=== PATIENT | male | born 1965 | race Asian ===

== ENCOUNTER 2020-12-25 04:07 | Emergency (ER) | payer BC ==
[2020-12-25] MEDS ORDERED: Dexamethasone 10 MG/ML VIAL ONE (04:28)
[2020-12-25] MEDS ORDERED: Amlodipine 5 MG TAB ONE (04:28)
== END 2020-12-25 04:57 | disposition home or self-care (01) ==
LOC: ERS 04:07
DX: M54.41 Lumbago with sciatica, right side (principal); I10 Essential (primary) hypertension
CPT/HCPCS: 96372; 99283; J1100

== ENCOUNTER 2020-12-27 08:01 | Inpatient (IN) | payer BC ==
[2020-12-27] MEDS ORDERED: Morphine 4 MG/ML VIAL ONE (08:26)
[2020-12-27] MEDS ORDERED: Acetaminophen 650 MG Suppository PR PRN (14:58)
[2020-12-27] MEDS ORDERED: Ondansetron ODT 4 MG TAB PO PRN (14:58)
[2020-12-27] MEDS ORDERED: Acetaminophen 325 MG TAB PO PRN (14:58)
[2020-12-27] MEDS ORDERED: Ondansetron PF 4 MG/2 ML Vial IVP PRN (14:58)
[2020-12-27] MEDS ORDERED: Methocarbamol 500 MG TAB PO SCH (15:00)
[2020-12-27] MEDS ORDERED: Methocarbamol 500 MG TAB PO PRN (15:00)
[2020-12-27] MEDS: Morphine 4 MG/ML VIAL SLOW IVP PRN ×2 (16:37→22:30)
[2020-12-27 16:42] VITALS: BMI 28.5
[2020-12-27 21:28] LABS: SARS-CoV-2 PCR by NAA Not Detected (NotDetected)
[2020-12-28] MEDS ORDERED: Dexamethasone 4 mg/ml Vial SLOW IVP SCH ×2 (00:16→09:00)
[2020-12-28] MEDS ORDERED: Dexamethasone 10 MG in Sodium Chloride 0.9% 50 ML IVPB SCH (00:30)
[2020-12-28] MEDS ORDERED: Fentanyl 100 MCG/2 ML VIAL SLOW IVP SCH (00:30)
[2020-12-28] MEDS ORDERED: HYDROcodone/Acetaminophen 5/325 mg Tablet PO PRN (01:14)
[2020-12-28] MEDS ORDERED: Fentanyl 100 MCG/2 ML VIAL SLOW IVP PRN (01:15)
[2020-12-28] MEDS: HYDROcodone/Acetaminophen 5/325 mg Tablet PO PRN ×3 (04:06→22:59)
[2020-12-28 06:28] LABS: Anion Gap 13 mmol/L (10-20); BUN (Urea Nitrogen) 17 mg/dL (8.4-25.7); Calc. Creatinine Clearance 117 mL/min (70-130); Calcium 9.2 mg/dL (7.8-10.44); Carbon Dioxide 27 mmol/L (22-29); Chloride 107 mmol/L (98-107); Glucose 155 mg/dL (70-105); Sodium 143 mmol/L (136-145)
[2020-12-28 06:33] LABS: #Lymphocytes 1.3 thou/uL (1.20-3.40); #Monocytes 0.3 thou/uL (0.11-0.59); #Neutrophils 7.2 thou/uL (1.40-6.50); %Basophils 0.4 % (0.0-1.0); %Eosinophils 0.3 % (0.0-10.0); %Lymphocytes 15.1 % (21.0-51.0); %Neutrophils 81.2 % (42.0-75.0); Hemoglobin 14.7 g/dL (14.0-18.0); MDiff Complete? YES; Mean Corpuscular HGB CONC 33.3 g/dL (32.0-36.0); Mean Corpuscular Volume 66.2 fL (78.0-98.0); Mean Platelet Volume 12.3 fL (7.4-10.4); Microcytosis MODERATE=15-30 cells (100X) (0-5/hpf); Platelet Count 158 thou/uL (130-400); Platelet Morphology Comment Appears Adequate; Polychromasia SLIGHT = 2-3 cells (100X) (0-2/hpf); RBC Distribution Width 14.2 % (11.5-14.5); Red Blood Cell (RBC) Count 6.66 mill/uL (4.70-6.10); White Blood Cell (WBC) Count 8.9 thou/uL (4.8-10.8)
[2020-12-28] MEDS ORDERED: Gabapentin 100 MG CAP PO PRN (07:53)
[2020-12-28] MEDS ORDERED: Cyclobenzaprine 10 MG TAB PO PRN (07:53)
[2020-12-28] MEDS ORDERED: tiZANidine HCl 4 MG TAB PO PRN (07:54)
[2020-12-28] MEDS: Amlodipine 10 MG TAB PO SCH (07:54)
[2020-12-28] MEDS ORDERED: methylPREDNISolone Sod Succ/PF 125 MG/2 ML VIAL IVP SCH (09:45)
[2020-12-28] MEDS: Morphine 4 MG/ML VIAL SLOW IVP PRN (11:57)
[2020-12-28] MEDS: Gabapentin 300 MG CAP PO SCH ×2 (15:28→20:50)
[2020-12-28] MEDS: Lidocaine 5% Patch TD SCH (17:24)
[2020-12-28] MEDS ORDERED: Senokot S 8.6-50 MG TAB PO SCH (23:15)
[2020-12-29 06:37] LABS: PTT 26.9 sec (22.9-36.1); Prothrombin Time 12.8 sec (12.0-14.7)
[2020-12-29] MEDS: Transdermal Patch Removal TOP SCH (06:53)
[2020-12-29] MEDS: Senokot S 8.6-50 MG TAB PO SCH ×2 (08:15→20:43)
[2020-12-29] MEDS: Gabapentin 300 MG CAP PO SCH ×3 (08:15→20:43)
[2020-12-29] MEDS: Amlodipine 10 MG TAB PO SCH (08:15)
[2020-12-29] MEDS: HYDROcodone/Acetaminophen 5/325 mg Tablet PO PRN (08:18)
[2020-12-29] MEDS: Morphine 4 MG/ML VIAL SLOW IVP PRN (11:29)
[2020-12-29] MEDS ORDERED: SUGAMMADEX SODIUM 200 MG/2 ML VIAL ONE (15:14)
[2020-12-29] MEDS ORDERED: Thrombin 5000 UNITS/5 ML VIAL ONE (15:23)
[2020-12-29] MEDS ORDERED: Bupivacaine PF 0.5% 30 ML VIAL ONE (15:23)
[2020-12-29] MEDS ORDERED: EPINEPHrine 1 MG/ML AMP ONE (15:23)
[2020-12-29] MEDS ORDERED: Sodium Chloride 0.9% 10 ML ONE (15:24)
[2020-12-29] MEDS ORDERED: Sodium Chloride 0.9% 20 ML ONE (15:40)
[2020-12-29] MEDS ORDERED: Fentanyl 100 MCG/2 ML VIAL ONE ×4 (16:10→19:47)
[2020-12-29] MEDS ORDERED: Promethazine HCl 25 MG/ML VIAL IM PRN (16:12)
[2020-12-29] MEDS ORDERED: Promethazine HCl 25 MG/ML VIAL SLOW IVP PRN (16:12)
[2020-12-29] MEDS ORDERED: Ondansetron HCl/PF 4 MG/2 ML Vial IVP PRN (16:12)
[2020-12-29] MEDS ORDERED: Midazolam HCl 2 mg/2 ml Vial ONE (16:36)
[2020-12-29] MEDS ORDERED: HYDROmorphone 2 MG/ML VIAL ONE (16:37)
[2020-12-29] MEDS ORDERED: Esmolol 100 MG/10 ML VIAL ONE (17:05)
[2020-12-29] MEDS ORDERED: PROPOFOL 200 MG/20 ML VIAL ONE (17:05)
[2020-12-29] MEDS ORDERED: Ondansetron PF 4 MG/2 ML Vial ONE (17:05)
[2020-12-29] MEDS ORDERED: Rocuronium Bromide 10 MG/ML (10ML VIAL) ONE (17:05)
[2020-12-29] MEDS ORDERED: Dexamethasone 20 MG/5 ML VIAL ONE (17:05)
[2020-12-29] MEDS ORDERED: Ketorolac Tromethamine 30 MG/ML VIAL ONE (17:05)
[2020-12-29] MEDS ORDERED: ePHEDrine Sulfate 50 MG/10 ML VIAL ONE (17:05)
[2020-12-29] MEDS ORDERED: PHENYLEPHRINE-NS 100 MCG/ML 10 ML SYRINGE ONE (17:05)
[2020-12-29] MEDS ORDERED: Glycopyrrolate 0.2 MG/ML 5 ML SYRINGE ONE (17:05)
[2020-12-29] MEDS: Lidocaine 5% Patch TD SCH (18:39)
[2020-12-30] MEDS: Transdermal Patch Removal TOP SCH (05:12)
[2020-12-30 08:37] VITALS: BP 153/104; TEMP 97.2
[2020-12-30] MEDS: Amlodipine 10 MG TAB PO SCH ×2 (09:36→09:41)
[2020-12-30] MEDS: Gabapentin 300 MG CAP PO SCH (09:36)
[2020-12-30] MEDS: Senokot S 8.6-50 MG TAB PO SCH (09:36)
== END 2020-12-30 10:56 | disposition home or self-care (01) | DRG 520 ==
LOC: ERS 08:01 → EEVIPCON 08:01 → T4-A 14:08 → OBSVTOIN 12-28 16:17
PROVIDERS: ADMIT Internal Medicine; ATTEND Internal Medicine
PROC: 0SB20ZZ Excision of Lumbar Vertebral Disc, Open Approach (ICD-10-PCS; principal; 2020-12-29)
PROC: 01NB0ZZ Release Lumbar Nerve, Open Approach (ICD-10-PCS; 2020-12-29)
PROC: 01NR0ZZ Release Sacral Nerve, Open Approach (ICD-10-PCS; 2020-12-29)
PROC: 0SB40ZZ Excision of Lumbosacral Disc, Open Approach (ICD-10-PCS; 2020-12-29)
DX: M47.26 Other spondylosis with radiculopathy, lumbar region (principal); M51.16 Intervertebral disc disorders with radiculopathy, lumbar region; Z20.822 Contact with and (suspected) exposure to COVID-19; I10 Essential (primary) hypertension; E03.9 Hypothyroidism, unspecified; M51.17 Intervertebral disc disorders with radiculopathy, lumbosacral region; Z79.899 Other long term (current) drug therapy
CPT/HCPCS: 36415; 72148; 76000; 80048; 84443; 85025; 85610; 85730; 96372; 96374; 96375; 96376; 99283; G0378; J0171; J0690; J1100; J1170; J1885; J2250; J2270; J2405; J2704; J2930; J3010; J3370; J3490; S0020; U0003; U0005